=== PATIENT | male | born 1975 | race Caucasian/White ===

== ENCOUNTER 2019-01-14 19:07 | Emergency (ER) | payer OTHER ==
[~2019-01-14] VITALS: Ht 185.4 cm; Wt 113.6 kg
[2019-01-14] MEDS ORDERED: METO1TAB87 PO (19:18)
[2019-01-14] MEDS ORDERED: OMEP-221 PO (19:18)
[2019-01-14] MEDS ORDERED: LEVO137T2 PO (19:18)
[2019-01-14] MEDS ORDERED: VENTAER PO (19:18)
[2019-01-14] MEDS ORDERED: ASPI81CH33 PO (19:18)
[2019-01-14] MEDS ORDERED: AMLO5TAB6 PO (19:18)
[2019-01-14] MEDS ORDERED: VITA200028 PO (19:19)
[2019-01-14] MEDS ORDERED: ASPIRIN 81 MG CHEW TABLET PO ONE (19:30)
[2019-01-14] MEDS ORDERED: FUROSEMIDE 40 MG/4 ML VIAL (J1940) IV ONE (19:30)
[2019-01-14 20:12] LABS: BASO # 0.1 10^3/uL (0.0-0.2); BASO % 0.6 % (0.0-1.0); EOS # 0.2 10^3/uL (0.0-0.50); EOS % 2.5 % (0.0-3.0); HEMATOCRIT 39.6 % (42.0-52.0); HEMOGLOBIN 13.7 g/dl (13.5-17.5); LYMPH # 2.7 10^3/uL (1.5-4.5); MEAN CORPUSCULAR HEMOGLOBIN 31.2 pg (27.0-33.0); MEAN CORPUSCULAR HGB CONC 34.6 g/dl (32.0-36.5); MEAN CORPUSCULAR VOLUME 90.2 fl (80.0-96.0); MONO # 0.7 10^3/uL (0.0-0.8); MONO % 7.5 % (0.0-5.0); NEUTROPHILS % 57.4 % (36.0-66.0); PLATELET COUNT, AUTOMATED 253 10^3/uL (150-450); RED BLOOD COUNT 4.39 10^6/uL (4.30-6.10); WHITE BLOOD COUNT 8.7 10^3/uL (4.0-10.0)
[2019-01-14 20:22] LABS: INR 0.98; PROTHROMBIN TIME 13.1 SECONDS (12.1-14.4)
[2019-01-14 20:35] LABS: ALBUMIN 4.5 GM/DL (3.2-5.2); ALT/SGPT 52 U/L (12-78); BILIRUBIN,DIRECT 0.1 MG/DL (0.0-0.2); BILIRUBIN,TOTAL 0.6 MG/DL (0.2-1.0); BLOOD UREA NITROGEN 21 MG/DL (7-18); CALCIUM LEVEL 9.5 MG/DL (8.5-10.1); CARBON DIOXIDE LEVEL 27 MEQ/L (21-32); CHLORIDE LEVEL 103 MEQ/L (98-107); CK-MB VALUE MASS 1.2 NG/ML (<3.6); CPK CREATINE PHOSPHOKINASE 113 U/L (39-308); CREATININE FOR GFR 0.99 MG/DL (0.70-1.30); GLOMERULAR FILTRATION RATE > 60.0 (>60); GLUCOSE, FASTING 107 MG/DL (70-100); LIPASE 79 U/L (73-393); MB/CK RELATIVE INDEX 1.06 (< OR =4); NT-PRO BNP 10 PG/ML (<125); SODIUM LEVEL 139 MEQ/L (136-145); TOTAL PROTEIN 7.9 GM/DL (6.4-8.2); TROPONIN I < 0.02 NG/ML (< 0.10)
--- NOTE | 2019-01-14 21:25 | REP ---
Chest two views HISTORY: Chest pain Comparison: None There is elevation of the right hemidiaphragm. The lungs are clear. The heart is normal in size. The pulmonary vasculature is normal in appearance. The bony structure is intact. IMPRESSION: No acute disease. Electronically Signed by Biju Moody MD 01/14/2019 09:16 P
[2019-01-14 21:56] VITALS: BP 131/87
--- NOTE | 2019-01-15 09:10 | ECGEPIP ---
[facility] - ED Test Date: 2019-01-14 Pat Name: TOMASZ KLINE Department: Room: - Gender: Male [employer]: JHarlan : 1975 Requested By: BLAS HAYWOOD Order Number: [id number] Reading MD: Kurt Juarez Measurements Intervals [place] Rate: 70 P: 53 GA: 174 QRS: 17 QRSD: 105 T: 30 QT: 392 QTc: 425 Interpretive Statements SINUS RHYTHM Comparison tracing not on file Electronically Signed on 01-15-2019 9:09:56 EDT by Kurt Juarez
== END 2019-01-14 21:59 | disposition home or self-care (01) ==
LOC: M ED 19:07
DX: R07.89 Other chest pain (principal); R60.0 Localized edema; I10 Essential (primary) hypertension; J45.909 Unspecified asthma, uncomplicated; E07.9 Disorder of thyroid, unspecified; K21.9 Gastro-esophageal reflux disease without esophagitis; Z88.8 Allergy status to other drugs, medicaments and biological substances
CPT/HCPCS: 71046; 80048; 80076; 82550; 82553; 83690; 83880; 84484; 85025; 85610; 93005; 93041; 94760; 96374; 99284; J1940